=== PATIENT | female | born 1955 | race Caucasian/White ===

== ENCOUNTER → 2017-01-12 | Outpatient (REF) ==
[~2017-01-12] MED LIST: CALCIUM 600-D 61 TAB PO; DIOVAN80 M1 PO; FOSAMAX PO; SYNTHROID0.1 MG/TAB PO; VITAMIN D31000 I1 PO; ZOCOR 40MG40 MG PO; armour thyroid PO
== END ==
LOC: ZLAB.WCH 10:30
DX: Z01.89 Encounter for other specified special examinations (principal)

== ENCOUNTER → 2017-03-13 | Outpatient (REF) | LOC: ZLAB.WCH 10:27 | DX: Z01.89 Encounter for other specified special examinations (principal) ==

== ENCOUNTER 2017-03-26 12:41 | Outpatient (CLI) | payer OTHER ==
[~2017-03-26] VITALS: Ht 152.4 cm; Wt 55.7 kg
[2017-03-26 13:47] VITALS: BP 115/52; PULSE 73; TEMP 97.8
== END 2017-03-26 13:48 | disposition home or self-care (01) ==
LOC: EUO 12:41
DX: Z12.31 Encounter for screening mammogram for malignant neoplasm of breast (principal); M81.0 Age-related osteoporosis without current pathological fracture
CPT/HCPCS: J3489

== ENCOUNTER → 2017-03-26 | Outpatient (CLI) | payer OTHER | LOC: MC.RAD 08:51 | DX: Z12.31 Encounter for screening mammogram for malignant neoplasm of breast (principal) ==

== ENCOUNTER → 2018-01-21 | Outpatient (REF) | LOC: ZLAB.WCH 16:13 | DX: Z01.89 Encounter for other specified special examinations (principal) ==

== ENCOUNTER 2018-03-07 10:54 | Outpatient (CLI) | payer BC ==
[~2018-03-07] VITALS: Ht 152.4 cm; Wt 63.3 kg
[2018-03-07 11:35] VITALS: BP 139/71; PULSE 70; TEMP 98.1
== END 2018-03-07 12:42 | disposition home or self-care (01) ==
LOC: EUO 10:54
DX: M81.0 Age-related osteoporosis without current pathological fracture (principal); M84.375A Stress fracture, left foot, initial encounter for fracture
CPT/HCPCS: J3489